=== PATIENT | female | born 1980 | race Caucasian/White ===

== ENCOUNTER 2025-05-25 07:39 | Outpatient (CLI) | payer OTHER, SELFPAY ==
--- NOTE | 2025-05-25 08:00 | MR_ITS ---
WS: [id number] MRI LUMBAR SPINE NONCONTRAST HISTORY: M54.16 - Radiculopathy, lumbar region, low back and LEFT leg pain for years. COMPARISON: None available. TECHNIQUE: Sagittal and axial multisequence imaging is submitted. Degenerative disc disease and osteophytosis in the cervical spine. Mild disc osteophyte encroachment upon the foramina in the cervical spine from C3-4 through C6-7. Mild curvature and scoliosis. L3 retrolisthesis by 2 mm. Disc spaces are narrowed at L3-4, L4-5 and L5-S1. There is marrow edema along the superior endplate of L4. Conus terminates normally at L1. L1-L2: Normal. L2-L3: Normal. L3-L4: Diffuse annular disc bulge with a RIGHT foraminal disc protrusion. Disc protrusion begins in the RIGHT subarticular recess and extends laterally. Thecal sac is being deformed. Contact on the traversing L4 nerve roots by disc osteophyte disease. Mild central with bilateral subarticular recess stenosis. No significant foraminal stenosis. Mild facet arthritis. L4-L5: Mild annular disc bulging with ligamentum flavum and facet arthritis. Narrowing of the thecal sac with disc encroachment into the subarticular recesses. Shallow RIGHT foraminal disc osteophyte. Moderate central with bilateral subarticular recess stenosis. Disc contacts the traversing L5 nerve ro ots. Mild foraminal stenosis. Moderate facet arthritis. L5-S1: Annular disc bulging with osteophytic ridging. Shallow central disc protrusion with slight disc contact on the S1 nerve roots. LEFT foraminal disc osteophyte complex contacts the LEFT exiting L1 nerve root. Moderate LEFT foraminal stenosis and mild on the RIGHT. Paravertebral soft tissues are negative. MR/MR lumbar spine wo/w con [id number] IMPRESSION: 1. Moderate LEFT foraminal stenosis at L5-S1. Disc osteophyte with contact on the LEFT exiting L5 nerve root. Mild stenosis on the RIGHT. 2. Very slight central disc protrusion at L5-S1 with minimal contact on the S1 nerve roots. 3. L4-5: Moderate central with bilateral subarticular recess stenosis. Disc co ntacts the traversing L5 nerve roots. 4. L3-4: Broad-based RIGHT foraminal disc protrusion begins in the RIGHT subar ticular recess extending laterally. Disc contact on the traversing L4 nerve jordan ts, RIGHT greater than LEFT. Mild central and subarticular recess stenosis.
[2025-05-25] MEDS: gadobenate dimeglumine 20 mL vial 16 ML IV (08:53)
== END 2025-05-25 07:40 | disposition home or self-care (01) ==
LOC: RAD 07:40
PROVIDERS: PCP Student in an Organized Health Care Education/Training Program; Visit Provider Nurse Practitioner Family
DX: M54.16 Radiculopathy, lumbar region (principal); M48.07 Spinal stenosis, lumbosacral region; M48.061 Spinal stenosis, lumbar region without neurogenic claudication; M51.26 Other intervertebral disc displacement, lumbar region
CPT/HCPCS: 72158